=== PATIENT | female | born 1965 | race Two or more races ===

== ENCOUNTER → 2017-07-15 | Emergency (ER) | payer OTHER ==
[~2017-07-15] VITALS: Ht 162.6 cm; Wt 90.7 kg
[~2017-07-15] MED LIST: BACTRIM DS TAB1 EACH PO; DEPAKOTE ER500 MG PO; LAMICTAL100 MG PO; TUSSI PRES-B L120 M1 PO; ZITHROMAX TRI-500 MG PO
== END | disposition home or self-care (01) ==
LOC: ER 23:24
DX: E03.8 Other specified hypothyroidism (principal); R47.81 Slurred speech; F41.9 Anxiety disorder, unspecified

== ENCOUNTER 2017-10-21 07:32 | Outpatient (CLI) | payer OTHER | END 2017-10-21 07:35 | disposition home or self-care (01) | LOC: SONOGRAMA 07:32 | DX: E04.2 Nontoxic multinodular goiter (principal) ==

== ENCOUNTER 2017-11-28 10:19 | Outpatient (CLI) | payer OTHER | END 2017-11-28 10:25 | disposition home or self-care (01) | LOC: MAMO-SONO 10:19 | DX: Z12.31 Encounter for screening mammogram for malignant neoplasm of breast (principal); I10 Essential (primary) hypertension; G62.89 Other specified polyneuropathies; G40.919 Epilepsy, unspecified, intractable, without status epilepticus; G99.0 Autonomic neuropathy in diseases classified elsewhere; E55.9 Vitamin D deficiency, unspecified; E66.8 Other obesity; M54.14 Radiculopathy, thoracic region; M35.3 Polymyalgia rheumatica; E03.8 Other specified hypothyroidism ==

== ENCOUNTER 2018-02-28 23:17 | Emergency (ER) | payer OTHER ==
[~2018-02-28] VITALS: Ht 154.9 cm; Wt 90.7 kg
[2018-03-01] MEDS ORDERED: BUTALB-ACETAMI1 EACH PO (01:22)
[2018-03-01] MEDS ORDERED: KETO10TA2 PO (01:22)
== END 2018-03-01 01:28 | disposition home or self-care (01) ==
LOC: ER 23:17
DX: G43.809 Other migraine, not intractable, without status migrainosus (principal)

== ENCOUNTER 2019-03-16 23:11 | Emergency (ER) | payer OTHER ==
[~2019-03-16] VITALS: Ht 154.9 cm; Wt 88.9 kg
[~2019-03-16 23:11] MED LIST changes: +BUTALB-ACETAMI1 EACH PO; +KETO10TA2 PO
[2019-03-16] MEDS ORDERED: LAMICTAL200 M1 PO (23:23)
[2019-03-17] MEDS ORDERED: CARAFATE1 GM PO (01:54)
[2019-03-17] MEDS ORDERED: PEPCID20 MG PO (01:54)
== END 2019-03-17 02:47 | disposition home or self-care (01) ==
LOC: ER 23:11
DX: K29.70 Gastritis, unspecified, without bleeding (principal)

== ENCOUNTER → 2019-07-13 | Outpatient (CLI) | payer OTHER ==
[~2019-07-13] MED LIST changes: +CARAFATE1 GM PO; +LAMICTAL200 M1 PO; +PEPCID20 MG PO
== END | disposition home or self-care (01) ==
LOC: MAMO-SONO 09:15
DX: F32.89 Other specified depressive episodes (principal); I11.9 Hypertensive heart disease without heart failure; Z68.31 Body mass index [BMI] 31.0-31.9, adult; F34.89 Other specified persistent mood disorders; E66.8 Other obesity; M51.87 Other intervertebral disc disorders, lumbosacral region; Z12.31 Encounter for screening mammogram for malignant neoplasm of breast

== ENCOUNTER 2019-09-07 09:52 | Outpatient (CLI) | payer OTHER | END 2019-09-07 10:22 | disposition home or self-care (01) | LOC: NUCLEAR 09:52 | DX: M81.0 Age-related osteoporosis without current pathological fracture (principal); F32.89 Other specified depressive episodes; I11.9 Hypertensive heart disease without heart failure; Z68.31 Body mass index [BMI] 31.0-31.9, adult; F39 Unspecified mood [affective] disorder; E66.8 Other obesity; M51.87 Other intervertebral disc disorders, lumbosacral region; B30.2 Viral pharyngoconjunctivitis; R13.13 Dysphagia, pharyngeal phase; Z12.31 Encounter for screening mammogram for malignant neoplasm of breast ==

== ENCOUNTER → 2021-10-02 13:10 | Outpatient (CLI) | payer OTHER | END | disposition home or self-care (01) | LOC: NUCLEAR 13:00 | PROVIDERS: ATTEND Internal Medicine | DX: M81.0 Age-related osteoporosis without current pathological fracture (principal) ==

== ENCOUNTER 2021-10-09 11:05 | Outpatient (CLI) | payer OTHER | END 2021-10-09 11:06 | disposition home or self-care (01) | LOC: MAMO-SONO 11:05 | PROVIDERS: ATTEND Internal Medicine | DX: Z12.31 Encounter for screening mammogram for malignant neoplasm of breast (principal); N60.12 Diffuse cystic mastopathy of left breast; N60.11 Diffuse cystic mastopathy of right breast ==

== ENCOUNTER → 2022-02-01 | Outpatient (CLI) | payer OTHER | END | disposition home or self-care (01) | LOC: NUCLEAR 08:57 | PROVIDERS: ATTEND Internal Medicine | DX: E55.9 Vitamin D deficiency, unspecified (principal); Z12.31 Encounter for screening mammogram for malignant neoplasm of breast; E66.8 Other obesity; Z68.31 Body mass index [BMI] 31.0-31.9, adult; I10 Essential (primary) hypertension; F32.9 Major depressive disorder, single episode, unspecified; F39 Unspecified mood [affective] disorder ==

== ENCOUNTER → 2022-06-28 12:13 | Outpatient (CLI) | payer OTHER | END | disposition home or self-care (01) | LOC: LAB 12:13 | PROVIDERS: ATTEND Radiology Diagnostic Radiology | DX: R19.00 Intra-abdominal and pelvic swelling, mass and lump, unspecified site (principal) ==

== ENCOUNTER 2022-07-27 08:18 | Outpatient (CLI) | payer OTHER | END 2022-07-27 08:36 | disposition home or self-care (01) | LOC: TOM 08:18 | PROVIDERS: ATTEND Obstetrics & Gynecology | DX: R19.00 Intra-abdominal and pelvic swelling, mass and lump, unspecified site (principal) ==

== ENCOUNTER 2022-11-08 08:18 | Outpatient (CLI) | payer OTHER | END 2022-11-08 08:24 | disposition home or self-care (01) | LOC: MAMO-SONO 08:18 | PROVIDERS: ATTEND Emergency Medicine Pediatric Emergency Medicine | DX: Z12.31 Encounter for screening mammogram for malignant neoplasm of breast (principal); N60.11 Diffuse cystic mastopathy of right breast ==

== ENCOUNTER 2023-02-22 09:31 | Outpatient (CLI) | payer OTHER | END 2023-02-22 09:37 | disposition home or self-care (01) | LOC: RAD 09:31 | PROVIDERS: ATTEND Internal Medicine | DX: M71.21 Synovial cyst of popliteal space [Baker], right knee (principal); M23.90 Unspecified internal derangement of unspecified knee ==

== ENCOUNTER 2024-02-03 12:35 | Outpatient (CLI) | payer OTHER | END 2024-02-03 12:36 | disposition home or self-care (01) | LOC: NUCLEAR 12:35 | PROVIDERS: ATTEND Internal Medicine | DX: Z13.820 Encounter for screening for osteoporosis (principal); M81.0 Age-related osteoporosis without current pathological fracture ==

== ENCOUNTER → 2024-08-28 | Outpatient (CLI) | payer OTHER | END | disposition home or self-care (01) | LOC: RAD 08:12 | DX: M17.0 Bilateral primary osteoarthritis of knee (principal) ==

== ENCOUNTER 2024-12-14 07:52 | Outpatient (CLI) | payer OTHER | END 2024-12-14 07:54 | disposition home or self-care (01) | LOC: RAD 07:52 | DX: M17.0 Bilateral primary osteoarthritis of knee (principal) ==